=== PATIENT | male | born 1965 | race Caucasian/White ===

== ENCOUNTER 2025-03-30 12:15 | Emergency (ER) | payer OTHER ==
[2025-03-30 15:09] LABS: LYME AB IgG Negative (Negative); LYME AB IgM Positive (Negative)
== END 2025-03-30 14:32 | disposition home or self-care (01) ==
LOC: JP.ED 12:15
DX: L21.0 Seborrhea capitis (principal); R21 Rash and other nonspecific skin eruption
CPT/HCPCS: 86617; 86618; 87468; 87469; 87484; 87798; 99283